=== PATIENT | female | born 1995 | race Two or more races ===

== ENCOUNTER 2019-10-22 10:17 | Emergency (ER) | payer MEDICAID ==
[~2019-10-22] VITALS: Ht 162.6 cm; Wt 72.6 kg
[2019-10-22 10:33] VITALS: BP 116/77
--- NOTE | 2019-10-22 10:52 | Emergency Room Report ---
History of Present Illness General Chief Complaint: Eye Problems Source: Patient Present Illness HPI Disclaimer: Please note that this report is being documented using [employer] technology. This can lead to erroneous entry secondary to incorrect interpretation by the dictating instrument. HPI: 24-year-old female with no reported medical history presents for evaluation of left eye irritation and drainage. Symptoms began this morning when she awoke. She noted some swelling of the upper and lower lids and is a hard crust over the eyelid this morning with some purulent drainage. She noted a gritty sensation and foreign body sensation in her eyes. Notes some blurred vision on the left that is worse than the right side. She wears contact lens and states she has very poor vision at baseline making it almost impossible to see without correction. She has been suffering from a an upper respiratory infection for the past week noting nasal congestion, sore throat, cough and intermittent diarrhea. Symptoms appear to be resolving. No other sick contacts. Cannot recall any trauma to the eye. Denies pain with extraocular motions, fever, chills. No return of the drainage since this morning. Continues to complain of the gritty sensation. PMH: Denies PSH: Denies Allergies: Denies Social Hx: Denies drug or alcohol abuse Allergies: Coded Allergies: No Known Allergies (Unverified , 10/22/19) Patient History Last Menstrual Period: SEP 2019 Nursing Documentation-PMH Past Medical History: No Stated History Review of Systems All Other Systems: negative except mentioned in HPI Physical Exam Vital Signs Date Time Temp Pulse Resp B/P (MAP) Pulse Ox O2 Delivery O2 Flow Rate FiO2 10/22/19 10:28 98.8 71 18 116/77 (90) 96 Room Air General: Awake and alert, no acute distress HEENT: NC/AT. EOMI. PERRLA. No significant lid edema. Pupils are 5 mm and reactive bilaterally. Conjunctiva are injected on the left worse than the right. Minor purulence at the canthus. Visual acuity is 20/200 bilaterally. Visual villafuerte are full. Wood's lamp exam: No fluorescein uptake, no corneal abrasions, no ulcers, no dendrites. Negative Carlotta. Resp: Normal work of breathing Skin: Intact. No abrasions, laceration or rash over the exposed skin MSK: Normal tone and bulk. Moving all extremities. No obvious deformity. Neuro: Awake and alert. Mentating appropriately Medical Decision Making Diagnostic Impression: Primary Impression: Conjunctivitis ER Course 24-year-old female who wears contact lenses presents for evaluation of unilateral eye irritation and purulent drainage since this morning. Given her recent upper respiratory syndrome this may be either a viral conjunctivitis or a secondary bacterial conjunctivitis. Given the slight purulence and the fact that the patient wears contact lenses we will prescribe antibiotics there is no evidence of corneal abrasion or ulcer at this time. She is instructed not to wear her contact lenses until this infection resolves. Started on moxifloxacin and artificial tears. She will follow closely with ophthalmology and return with any new or worsening symptoms. She understands and agrees with treatment plan will be discharged home. Last Vital Signs Date Time Temp Pulse Resp B/P (MAP) Pulse Ox O2 Delivery O2 Flow Rate FiO2 10/22/19 10:33 98.8 71 18 116/77 96 Room Air Disposition: HOME, SELF-CARE Condition: Stable Scripts Dextran 70/Hypromellose (ARTIFICIAL TEARS) 1 Each Droperette 1 EACH OP Q2H for 5 Days, #1 BAG Prov: Hemant Holman MD 10/22/19 Moxifloxacin HCl (Vigamox) 3 Ml Drops 1 DROP LEFT EYE THREE TIMES A DAY for 7 Days, #3 ML 0 Refills Prov: Hemant Holman MD 10/22/19 Hemant Holman MD Oct 22, 2019 10:52
[2019-10-22] MEDS ORDERED: Tetracaine 0.5% Opth 4ml Soln LEFT EYE ONE (11:00)
[2019-10-22] MEDS ORDERED: Fluorescein Strips LEFT EYE ONE (11:00)
[2019-10-22] MEDS ORDERED: VIGAMOX1 DROP LEFT EYE (11:12)
[2019-10-22] MEDS ORDERED: ARTIFICIAL TEA1 EAC2 OP (11:12)
[2019-10-22 11:22] VITALS: BP 116/77
== END 2019-10-22 11:26 | disposition home or self-care (01) ==
LOC: EMR 11:16
DX: H10.9 Unspecified conjunctivitis (principal)
CPT/HCPCS: 99282